=== PATIENT | male | born 1945 | race Caucasian/White ===

== ENCOUNTER 2019-03-26 22:31 | Emergency (ER) | payer SELFPAY ==
[~2019-03-26] VITALS: Ht 180.3 cm; Wt 90.0 kg
[2019-03-27 03:04] LABS: HEMATOCRIT. 35.9 % (42.0-52.0); HEMOGLOBIN. 11.7 g/dL (14.0-18.0); MEAN CORPUSCULAR HEMOGLOBIN 25.1 pg (28.0-32.0); MEAN CORPUSCULAR VOLUME 77.3 fL (80.0-94.0); MEAN PLATELET VOLUME 9.3 fl (7.4-10.4); PLATELET 655 x1000/uL (130-400); RED BLOOD CELL COUNT 4.65 mill/uL (4.7-6.1); RED CELL DISTRIBUTION WIDTH 22.6 % (11.6-14.6)
[2019-03-27 03:10] LABS: CHLORIDE 114 mEq/L (98-107)
[2019-03-27 04:14] LABS: PLATELET ESTIMATE INCREASED
[2019-03-27 04:26] LABS: CLARITY URINE CLEAR (CLEAR); COLOR URINE YELLOW (YELLOW); KETONES URINE NEGATIVE (NEGATIVE); LEUKOCYTE ESTERASE URINE NEGATIVE (NEGATIVE); NITRITE URINE NEGATIVE (NEGATIVE); OCCULT BLOOD URINE NEGATIVE (NEGATIVE); PH URINE 5.5 (4.5-8.0); PROTEIN URINE NEGATIVE (NEGATIVE); SPECIFIC GRAVITY URINE 1.029 (1.005-1.030); UROBILINOGEN URINE 0.2 E.U./dL (0.2-1.0)
[2019-03-27 04:30] VITALS: BP 152/82
== END 2019-03-27 05:51 | disposition home or self-care (01) ==
LOC: ER 23:05
DX: I83.892 Varicose veins of left lower extremity with other complications (principal); R21 Rash and other nonspecific skin eruption; D72.829 Elevated white blood cell count, unspecified; I10 Essential (primary) hypertension
CPT/HCPCS: 36415; 99283

== ENCOUNTER 2019-03-28 00:13 | Inpatient (IN) | payer SELFPAY ==
[~2019-03-28] VITALS: Ht 172.7 cm; Wt 88.9 kg
[2019-03-28] MEDS ORDERED: SODIUM CHLORIDE 0.9% 1,000 ML IV ONE (00:39)
[2019-03-28] MEDS ORDERED: VANCOMYCIN 1 G PREMIX 200 ML IV ONE (00:45)
[2019-03-28] MEDS ORDERED: PIPERACILLIN/TAZ 3.375G PREMIX 50 ML IV ONE (00:45)
[2019-03-28 01:12] LABS: HEMATOCRIT. 39.8 % (42.0-52.0); HEMOGLOBIN. 12.6 g/dL (14.0-18.0); MEAN CORPUSCULAR HEMOGLOBIN 24.5 pg (28.0-32.0); MEAN CORPUSCULAR VOLUME 77.7 fL (80.0-94.0); MEAN PLATELET VOLUME 9.2 fl (7.4-10.4); PLATELET 778 x1000/uL (130-400); RED BLOOD CELL COUNT 5.13 mill/uL (4.7-6.1); RED CELL DISTRIBUTION WIDTH 23.2 % (11.6-14.6)
[2019-03-28 01:15] LABS: CHLORIDE 109 mEq/L (98-107)
[2019-03-28 01:16] LABS: INR 1.1; PROTHROMBIN TIME 11.8 sec (9.6-11.0)
[2019-03-28 03:19] LABS: PLATELET ESTIMATE INCREASED
[2019-03-28 06:37] VITALS: BP 138/75
[2019-03-28 08:00] VITALS: BP 138/107
[2019-03-28 12:00] VITALS: BP 151/85
[2019-03-28] MEDS: CLOTRIMAZOLE/BETAMETHASONE 1/0.05% CREAM 15GM TOP SCH ×2 (12:43→21:08)
[2019-03-28] MEDS ORDERED: HYDROCODONE/ACETAMINOPHEN 5/325MG TABLET PO PRN (13:30)
[2019-03-28] MEDS ORDERED: IPRATROPIUM/ALBUTEROL 0.5-3(2.5)MG/3ML NEB INH PRN (13:30)
[2019-03-28] MEDS ORDERED: ONDANSETRON HCL 4MG/2ML INJ IV PRN (13:30)
[2019-03-28] MEDS ORDERED: CLONIDINE 0.1MG TABLET PO PRN (13:30)
[2019-03-28] MEDS ORDERED: ACETAMINOPHEN 325MG TABLET PO PRN (13:30)
[2019-03-28] MEDS ORDERED: LORAZEPAM 0.5MG TABLET PO PRN (13:30)
[2019-03-28] MEDS ORDERED: DILTIAZEM HCL 5MG/ML 5ML VIAL IV PRN (15:30)
[2019-03-28] MEDS: METOPROLOL TARTRATE 50MG TABLET PO SCH ×2 (18:53→21:02)
[2019-03-28] MEDS: ASPIRIN 81MG EC TABLET PO SCH (18:53)
[2019-03-28] MEDS: FUROSEMIDE 40MG/4ML VIAL IVP SCH (18:53)
[2019-03-28] MEDS: ENOXAPARIN 80MG/0.8ML SYR SUBCUT SCH (18:54)
[2019-03-28 20:00] VITALS: BP 129/71
[2019-03-28 23:49] LABS: CLARITY URINE CLEAR (CLEAR); COLOR URINE YELLOW (YELLOW); KETONES URINE NEGATIVE (NEGATIVE); LEUKOCYTE ESTERASE URINE NEGATIVE (NEGATIVE); NITRITE URINE NEGATIVE (NEGATIVE); OCCULT BLOOD URINE NEGATIVE (NEGATIVE); PROTEIN URINE NEGATIVE (NEGATIVE); SPECIFIC GRAVITY URINE 1.006 (1.005-1.030); UROBILINOGEN URINE 0.2 E.U./dL (0.2-1.0)
[2019-03-29] VITALS: BP 124/59
[2019-03-29 00:18] LABS: *AMPHETAMINES SCREEN URINE NEGATIVE (NEGATIVE); *BARBITURATES SCREEN URINE NEGATIVE (NEGATIVE); *BENZODIAZEPINES SCREEN URINE NEGATIVE (NEGATIVE); *COCAINE SCREEN URINE NEGATIVE (NEGATIVE)
[2019-03-29 00:19] LABS: CANNABINOID URINE SCREEN NEGATIVE (NEGATIVE); METHADONE URINE SCREEN NEGATIVE (NEGATIVE); OPIATES URINE SCREEN NEGATIVE (NEGATIVE); PHENCYCLIDINE URINE SCREEN NEGATIVE (NEGATIVE)
[2019-03-29 04:00] VITALS: BP 136/89
[2019-03-29] MEDS: ENOXAPARIN 80MG/0.8ML SYR SUBCUT SCH ×2 (05:25→15:19)
[2019-03-29 05:59] LABS: BASOPHILS % 0.9 % (0.0-2.0); EOSINOPHILS % 6.6 % (0.0-5.0); HEMATOCRIT. 36.2 % (42.0-52.0); HEMOGLOBIN. 11.4 g/dL (14.0-18.0); MEAN CORPUSCULAR HEMOGLOBIN 24.6 pg (28.0-32.0); MEAN CORPUSCULAR VOLUME 78.1 fL (80.0-94.0); MEAN PLATELET VOLUME 9.1 fl (7.4-10.4); MONOCYTES % 5.9 % (2.0-8.0); NEUTROPHILS % 78.6 % (40.0-76.0); PLATELET 713 x1000/uL (130-400); RED BLOOD CELL COUNT 4.64 mill/uL (4.7-6.1); RED CELL DISTRIBUTION WIDTH 22.9 % (11.6-14.6)
[2019-03-29 07:33] LABS: CHLORIDE 107 mEq/L (98-107)
[2019-03-29 08:00] VITALS: BP 128/81
[2019-03-29] MEDS: CLOTRIMAZOLE/BETAMETHASONE 1/0.05% CREAM 15GM TOP SCH ×2 (09:23→20:39)
[2019-03-29] MEDS: FUROSEMIDE 40MG/4ML VIAL IVP SCH (09:23)
[2019-03-29] MEDS: METOPROLOL TARTRATE 50MG TABLET PO SCH ×2 (09:24→20:39)
[2019-03-29] MEDS: ASPIRIN 81MG EC TABLET PO SCH (09:24)
[2019-03-29] MEDS: LISINOPRIL 5MG TABLET PO SCH (09:24)
[2019-03-29 12:00] VITALS: BP 117/63
[2019-03-29 16:00] VITALS: BP 155/77
[2019-03-29 20:00] VITALS: BP 108/58
[2019-03-30] VITALS: BP 111/59
[2019-03-30 04:00] VITALS: BP 126/68
[2019-03-30] MEDS: ENOXAPARIN 80MG/0.8ML SYR SUBCUT SCH ×2 (04:44→15:26)
[2019-03-30 05:57] LABS: HEMATOCRIT. 37.8 % (42.0-52.0); HEMOGLOBIN. 11.9 g/dL (14.0-18.0); MEAN CORPUSCULAR HEMOGLOBIN 24.2 pg (28.0-32.0); MEAN CORPUSCULAR VOLUME 77.1 fL (80.0-94.0); PLATELET 720 x1000/uL (130-400)
[2019-03-30 06:43] LABS: CHLORIDE 109 mEq/L (98-107)
[2019-03-30] MEDS ORDERED: PERMETHRIN 5% CREAM 60GM TOP NR (07:00)
[2019-03-30 08:00] VITALS: BP 132/77
[2019-03-30] MEDS: CLOTRIMAZOLE/BETAMETHASONE 1/0.05% CREAM 15GM TOP SCH (08:37)
[2019-03-30] MEDS: FUROSEMIDE 40MG/4ML VIAL IVP SCH (08:37)
[2019-03-30] MEDS: ASPIRIN 81MG EC TABLET PO SCH (08:38)
[2019-03-30] MEDS: METOPROLOL TARTRATE 50MG TABLET PO SCH (08:38)
[2019-03-30] MEDS: LISINOPRIL 5MG TABLET PO SCH (08:39)
[2019-03-30 10:55] LABS: NUCLEATED RED BLOOD CELLS 2 /100 WBC
[2019-03-30 10:56] LABS: PLATELET ESTIMATE INCREASED
[2019-03-30 11:19] LABS: VITAMIN B12 SERUM 1260 pg/mL (211-911)
[2019-03-30 12:00] VITALS: BP 110/61
[2019-03-30 16:00] VITALS: BP 112/63
[2019-03-30] MEDS ORDERED: RIVA20TA MT (18:08)
[2019-03-30] MEDS ORDERED: METO-539 PO (18:08)
[2019-03-30] MEDS ORDERED: FURO40TA5 MT (18:08)
[2019-03-30] MEDS ORDERED: ASPI-1158 PO (18:08)
[2019-03-30] MEDS ORDERED: [UNRECOGNIZED DRUG - CODE] IV (18:08)
[2019-03-30] MEDS ORDERED: ELIMC TOP (18:08)
[2019-03-30] MEDS ORDERED: LISI-186 PO (18:08)
[2019-03-30 19:36] VITALS: BP 144/73
[2019-04-02 05:19] LABS: HIV SCREEN 4G Non Reactive (Non Reactive)
== END 2019-03-30 21:10 | disposition home or self-care (01) | DRG 197 ==
LOC: ER 00:13 → 7WST 01:27 → EDBEDREQSVC 01:49 → EDBEDREQTM 01:49 → EDBEDREQ 01:49 → ENRESERV 04:11
PROVIDERS: ADMIT Internal Medicine; ATTEND Internal Medicine
DX: I83.893 Varicose veins of bilateral lower extremities with other complications (principal); I27.20 Pulmonary hypertension, unspecified; I42.0 Dilated cardiomyopathy; L03.115 Cellulitis of right lower limb; I48.91 Unspecified atrial fibrillation; I11.0 Hypertensive heart disease with heart failure; I50.42 Chronic combined systolic (congestive) and diastolic (congestive) heart failure; B88.8 Other specified infestations; D47.3 Essential (hemorrhagic) thrombocythemia; I87.8 Other specified disorders of veins; L03.116 Cellulitis of left lower limb; E11.9 Type 2 diabetes mellitus without complications; D50.9 Iron deficiency anemia, unspecified; D72.825 Bandemia; F10.21 Alcohol dependence, in remission; I87.2 Venous insufficiency (chronic) (peripheral); M21.372 Foot drop, left foot; L29.9 Pruritus, unspecified; I42.2 Other hypertrophic cardiomyopathy; Z87.891 Personal history of nicotine dependence
CPT/HCPCS: 36415; 71045; 80048; 80061; 80305; 82607; 82728; 83036; 83540; 83550; 83605; 83735; 83880; 84145; 86850; 86900; 87389; 93005; 93306; 96374; 96375; 97022; 97161; 99285; J1650; J1940; J2543; J3370; J7030